=== PATIENT | female | born 1965 | race Caucasian/White ===

== ENCOUNTER 2023-09-05 09:01 | Outpatient (CLI) | payer MEDICARE, SELFPAY ==
--- NOTE | ~2023-09-05 | CT_ITS ---
Clinical Indication: Chest pain CT Scan of the Chest and Abdomen with Contrast: Technique: Contiguous sections were acquired throughout the chest and abdomen after intravenous admin istration of 100 cc of Omnipaque 350. Dose reduction technique was used on this scan by utilizing au tomated exposure control and iterative reconstruction technique. The dose-length product (DLP) was 50 6.68 mGy-cm. Findings: There is no evidence of any significant mediastinal, hilar or axillary lymphadenopathy. The mediastin al vascular structures appear normal. Large hiatal hernia present, containing essentially entire stom ach, with organoaxial volvulus There is no evidence of pleural or pericardial effusion. The lungs are clear. No pulmonary nodules or infiltrates are noted. There is intrahepatic and extrahepatic biliary dilatation, which may be related to prior cholecystect keanu. No obstructing mass evident. No pancreatic ductal dilatation. The spleen, pancreas, adrenals and kidneys are within normal limits. No evidence of aortic aneurysm. No lymphadenopathy. Visualized bowel loops otherwise are unremarkable. No ascites. Impression: Large hiatal hernia containing essentially the entire stomach, with organoaxial volvulus. Intrahepatic and extrahepatic biliary dilatation is presumably related to prior cholecystectomy. Michelle berg clinically. Reviewed, dictated and finalized at [facility]. Impression: Large hiatal hernia containing essentially the entire stomach, with organoaxial volvulus. Intrahepatic and extrahepatic biliary dilatation is presumably related to prior cholecystectomy. Correlate clinically.
[2023-09-05 09:37] LABS: Estimated Glomerular Filt Rate > 60
== END 2023-09-05 09:02 | disposition home or self-care (01) ==
PROVIDERS: Visit Provider Surgery
DX: R07.9 Chest pain, unspecified (principal); K44.9 Diaphragmatic hernia without obstruction or gangrene; Z90.49 Acquired absence of other specified parts of digestive tract
CPT/HCPCS: 71260; 74160; Q9967

== ENCOUNTER 2023-09-11 08:57 | Day surgery (SDC) | payer MEDICARE, SELFPAY ==
[2023-09-03 10:03] VITALS: BMI 30.4
[2023-09-03 11:31] VITALS: BMI 30.2
[2023-09-11 10:43] VITALS: BP 112/78; PULSE 94; RESP 18; TEMP 37; O2SAT 98; BMI 30.1
--- NOTE | 2023-09-11 10:53 | WPDANESEPPF ---
Anes - Initial Pre Proc Eval Procedure: Operation Date: 09/11/23 11:30 Proposed Procedures p Esophagogastroduodenoscopy - Jono Cuevas MD Date/Time: 09/11/23 10:53 Surgeon: Jono Cuevas MD Pre Op Diagnosis: Personal HX of other disease of the digestive Patient Data Age: 57 Gender: F Height: 1.57 m Weight: 74.7 kg Last Vital Signs Temp 37.0 C 09/11/23 10:43 Pulse 94 09/11/23 10:43 Resp 18 09/11/23 10:43 BP 112/78 09/11/23 10:43 Pulse Ox 98 09/11/23 10:43 O2 Del Method Room Air 09/11/23 10:43 Allergies Allergy/AdvReac Type Severity Reaction Status Date / Time azithromycin AdvReac Intermediate DIARRHEA/CR Verified 09/11/23 10:27 AMPING Home Medications Medication Instructions Recorded Confirmed Type amitriptyline 10 mg tablet 10 mg PO QHS 09/01/23 09/11/23 History montelukast 10 mg tablet 10 mg PO DAILY 09/01/23 09/11/23 History (Singulair) pantoprazole 40 mg tablet,delayed 40 mg PO QAM 09/01/23 09/11/23 History release tramadol 25 mg tablet 50 mg PO Q6H PRN Pain (Scale Score 09/01/23 09/11/23 History 4-6) albuterol sulfate 90 mcg/actuation 90 mcg inhalation DIRECTED PRN 09/03/23 09/11/23 History aerosol inhaler Shortness Of Breath Or Wheezing allopurinol 100 mg tablet 200 mg PO BID 09/03/23 09/11/23 History amlodipine 5 mg tablet 5 mg PO DAILY 09/03/23 09/11/23 History dicyclomine 10 mg capsule 10 mg PO BID 09/03/23 09/11/23 History meloxicam 15 mg tablet 15 mg PO DAILY 09/03/23 09/11/23 History zolpidem 10 mg tablet 10 mg PO HS 09/03/23 09/11/23 History Patient hx anesthesia problems: none Family hx anesthesia problems: none Results Review: All pre-operative results and documents have been reviewed as part of the pre-operative evaluation. [facility] Past Medical History Medical History Asthma History of hiatal hernia History of kidney stones History of peptic ulcer IBS (irritable bowel syndrome) Migraine Ulcer Surgical History Surgical History Biceps tendon rupture repair in 2009 H/O: hysterectomy 2010 History of ankle surgery 2011 & 2013 Hx laparoscopic cholecystectomy 2009 Hx of appendectomy 2009 Hx of breast augmentation 1987 Social History Social History Smoking status: Never smoker Alcohol intake: never Substance use: never Substance use type: marijuana Do You Feel Safe in your Home?: Yes Lack of Transportation: No Lack of Food: Sometimes True Current Housing: I Have Housing Concerned About Future Housing: Decline to Answer Difficulty Paying Gas/Electric Bills: Decline to Answer Difficulty Paying for Meds: No Currently Unemployed: No Education: High School Diploma/GED Living arrangements: alone Spiritual care concerns: No Anes - Eval Final PreProcedure Day of Procedure 09/11/23 10:53 Patient weight: obese Heart: regular rate and rhythm Lungs: clear to auscultation Airway: Mallampati scale class II Neurological: alert and oriented Last oral intake: >/= 8 hours ASA classification: III Emergent: no Anesthetic plan: proceed Anesthesia type and monitoring: general GIVS and standard monitoring Results Review: All pre-operative results and documents have been reviewed as part of the pre-operative evaluation. Informed Consent: The patient's anesthetic plan and its attendant risks and benefits were discussed with the patient/family/POA. Questions were solicited and answers provided to the satisfaction of the patient/family/POA.
[2023-09-11] MEDS: LACTATED RINGERS 1,000 ML 150 ML IV CONT (11:05)
--- NOTE | 2023-09-11 11:18 | PM.HPGS ---
History of Present Illness History of Present Illness Consent: Risks, benefits, and alternatives have been discussed and questions answered. Patient agrees to proceed with procedure. Chief complaint: Epigastric pain Narrative: Elizabet Curry is a 57 year old female referred for EGD because of epigastric pain. Patient has a his distant history of peptic ulcer disease had a bleeding ulcer in 2009. Apparently at found to have a hiatal hernia at that time. She has been was all since that time. More recently has had epigastric pain over the last 1 month. Some discomfort right upper quadrant. She continues take pantoprazole but notices this discomfort often after eating. States supplemental antacids have made no impact on this pain. She presents today for EGD to evaluate ongoing discomfort. Patient denies any weight loss or bleeding at this time. Review of Systems Review of Systems: All systems reviewed & are unremarkable except as noted in HPI and below PMFSH Past Medical History Medical History Asthma History of hiatal hernia History of kidney stones History of peptic ulcer IBS (irritable bowel syndrome) Migraine Ulcer Surgical History Surgical History Biceps tendon rupture repair in 2009 H/O: hysterectomy 2010 History of ankle surgery 2011 & 2013 Hx laparoscopic cholecystectomy 2009 Hx of appendectomy 2009 Hx of breast augmentation 1988 Social History Social History Smoking status: Never smoker Alcohol intake: never Substance use: never Substance use type: marijuana Do You Feel Safe in your Home?: Yes Lack of Transportation: No Lack of Food: Sometimes True Current Housing: I Have Housing Concerned About Future Housing: Decline to Answer Difficulty Paying Gas/Electric Bills: Decline to Answer Difficulty Paying for Meds: No Currently Unemployed: No Education: High School Diploma/GED Living arrangements: alone Spiritual care concerns: No Meds Home Medications and Allergies Home Medications Medication Instructions Recorded Confirmed Type amitriptyline 10 mg tablet 10 mg PO QHS 09/01/23 09/11/23 History montelukast 10 mg tablet 10 mg PO DAILY 09/01/23 09/11/23 History (Singulair) pantoprazole 40 mg tablet,delayed 40 mg PO QAM 09/01/23 09/11/23 History release tramadol 25 mg tablet 50 mg PO Q6H PRN Pain (Scale Score 09/01/23 09/11/23 History 4-6) albuterol sulfate 90 mcg/actuation 90 mcg inhalation DIRECTED PRN 09/03/23 09/11/23 History aerosol inhaler Shortness Of Breath Or Wheezing allopurinol 100 mg tablet 200 mg PO BID 09/03/23 09/11/23 History amlodipine 5 mg tablet 5 mg PO DAILY 09/03/23 09/11/23 History dicyclomine 10 mg capsule 10 mg PO BID 09/03/23 09/11/23 History meloxicam 15 mg tablet 15 mg PO DAILY 09/03/23 09/11/23 History zolpidem 10 mg tablet 10 mg PO HS 09/03/23 09/11/23 History Allergies Allergy/AdvReac Type Severity Reaction Status Date / Time azithromycin AdvReac Intermediate DIARRHEA/CR Verified 09/11/23 10:27 AMPING Vital Signs Vital Signs - 24 hr 09/11/23 10:43 Temperature 98.6 F Pulse Rate 94 Respiratory Rate 18 Blood Pressure 112/78 Pulse Oximetry 98 Oxygen Delivery Room Air Exam Narrative: Physical exam reveals patient to be alert. Vital signs stable. HEENT exam is unremarkable. Patient is anicteric. Lungs are clear to auscultation and percussion. Heart is without murmur or extra sounds. Abdomen bowel sounds are present soft nontender with no organomegaly. Digital external rectal exam normal. Assessment and Plan Assessment and plan (1) Epigastric abdominal pain: Code(s): R10.13 - Epigastric pain Status: Acute Assessment and Plan: Patient with epigastric pain over the last 1 month. Occurs after
--- NOTE | 2023-09-11 11:34 | WPDANESPN ---
Anes - Prog Note Post-Op Date/Time: 09/11/23 11:34 Cardiovascular status: normal Respiratory status: normal Airway patency: baseline Mental status: baseline Post-Op hydration status: normal Vital Signs: Last Vital Signs Temp 37.0 C 09/11/23 10:43 Pulse 94 09/11/23 10:43 Resp 18 09/11/23 10:43 BP 112/78 09/11/23 10:43 Pulse Ox 98 09/11/23 10:43 O2 Del Method Room Air 09/11/23 10:43 Pain Score (VAS): 0 Patient Feedback: Patient satisfied with anesthetic care.
[2023-09-11 11:36] VITALS: BP 103/63; PULSE 86; RESP 15; O2SAT 98
[2023-09-11 11:46] VITALS: BP 98/68; PULSE 87; RESP 16; O2SAT 99
[2023-09-11 11:56] VITALS: BP 102/72; PULSE 84; RESP 18; O2SAT 98
== END 2023-09-11 12:13 | disposition home or self-care (01) ==
PROVIDERS: Visit Provider Internal Medicine Gastroenterology
PROC: 0DJ08ZZ Inspection of Upper Intestinal Tract, Via Natural or Artificial Opening Endoscopic (ICD-10-PCS; CPT 43235; principal; 2023-09-11 11:30)
DX: R10.13 Epigastric pain (principal); K44.9 Diaphragmatic hernia without obstruction or gangrene
CPT/HCPCS: 43239

== ENCOUNTER 2023-11-11 09:54 | Outpatient (CLI) | payer MEDICARE, SELFPAY ==
--- NOTE | ~2023-11-11 | XR_ITS ---
Clinical Indication: Diaphragmatic hernia PA and lateral views of the chest: Comparison: None Findings: The lungs are clear, without evidence of focal consolidation or pleural effusion. Cardiome diastinal silhouette is within normal limits. Large hiatal hernia present. Osseous structures intact. Impression: Large hiatal hernia. Clear lungs. Reviewed, dictated and finalized at [facility]. Impression: Large hiatal hernia. Clear lungs.
--- NOTE | 2023-11-11 10:59 | ECG_ITS ---
Test Date: 2023-11-11 11:10:53 Measurements Intervals [place] Rate: 94 P: 24 CO: 182 QRS: 94 QRSD: 100 T: 40 QT: 361 QTc: 452 Interpretive Statements SINUS RHYTHM RIGHT AXIS DEVIATION EARLY PRECORDIAL R/S TRANSITION BASELINE ARTIFACT- III, AVF BORDERLINE ECG No previous ECG available for comparison Electronically Signed On 11-11-2023 11:51:45 CDT by Rico Lockwood D.O.
[2023-11-11 11:15] LABS: Basophils Absolute Auto 0.2 K/mm3 (0.0-0.1); Eosinophils Absolute Auto 0.7 K/mm3 (0-0.3); Eosinophils Percent Auto 8.2 % (0-4.4); Hematocrit 41.4 % (37.0-47.0); Hemoglobin 13.4 g/dL (12.0-15.0); Immature Granulocyte Absolute 0.03 K/mm3 (0.00-0.031); Immature Granulocyte Percent A 0.3 % (0-0.5); Lymphocytes Absolute Auto 3.14 K/mm3 (0.9-3.2); Lymphocytes Percent Auto 34.9 % (18.3-44.2); Mean Corpuscular HGB Conc 32.4 g/dl (32-36); Mean Corpuscular Hemoglobin 30.4 pg (26-34); Mean Corpuscular Volume 93.9 fl (80-100); Mean Platelet Volume 11.1 fl (7.4-10.4); Monocytes Percent Auto 11.1 % (2.6-8.5); Neutrophils Absolute Auto 3.9 K/mm3 (1.3-6.7); Neutrophils Percent Auto 43.5 % (45.5-73.1); Platelet Count Result 332 k/mm3 (150-375); Red Blood Count 4.41 M/mm3 (4.2-5.4); Red Cell Distribution Width 16.5 % (11.5-14.5)
[2023-11-11 11:25] LABS: Anion Gap 7 mmol/L (4-12); Blood Urea Nitrogen 14 mg/dL (7-17); Calcium 9.1 mg/dL (8.4-10.2); Carbon Dioxide 31 mmol/L (22-30); Chloride 100 mmol/L (98-107); Estimated Glomerular Filt Rate > 60; Glucose 93 mg/dL (65-110); Potassium 3.6 mmol/L (3.4-5.0); Sodium 138 mmol/L (137-145)
== END 2023-11-11 09:55 | disposition home or self-care (01) ==
PROVIDERS: Visit Provider Surgery
DX: K44.9 Diaphragmatic hernia without obstruction or gangrene (principal); Z01.818 Encounter for other preprocedural examination
CPT/HCPCS: 36415; 71046; 80048; 85025; 86850; 86900; 86901; 93005

== ENCOUNTER 2023-11-20 14:00 | Inpatient (IN) | payer MEDICARE, SELFPAY ==
--- NOTE | 2023-11-11 09:58 | PC.NURSE ---
Report to the Outpatient Waiting Room, entrance under the green pavilion located off [facility], at time ___6:30AM____ on date ___11/19/23____. Planned Procedure Time: __8:30AM . Time changes happen often and if your time is changed the preop area will call you the afternoon before. - You and your visitor will be asked to self-screen and do not enter if you have any COVID symptoms. - A mask is optional within the hospital at this time. Patients may have clear liquids (water, carbonated beverages, clear teas, apple juice) until 3 hours prior to surgery with a maximum of 20 ounces. - No food from midnight until time of surgery. Take the following medications with a SIP of water the morning of surgery: __ MAY USE ALBUTEROL INHALER NEEDED. MAY TAKE TRAMADOL NEEDED FOR PAIN, AND BLINK DROPS NEEDED. DO NOT STOP ANY OF YOUR OTHER PRESCRIPTION MEDICATIONS PRIOR TO SURGERY ?EXCEPT THE FOLLOWING Medications to discontinue per physician NONE Date to take last dose Please no make-up, nail korean, hairspray, perfume, deodorant, or body powder the day of surgery. No jewelry (including any body piercings) or valuables the day of surgery, leave them at home. Please take a shower or bath the night before, or the morning of, surgery with an antibacterial soap. Wear comfortable, loose fitting clothing. - Jewelry must be removed prior to entering the operating room. Rings and piercings that are not removed may be cut off. - The hospital will not accept responsibility for valuables. - Please leave all valuables, including medications, at home the day of surgery. If you are going home after surgery, a licensed taxi cab driver must drive you home. - NO public transportation without another adult if you receive anesthesia. - We recommend that an adult stay with you for 24 hours following discharge. - We also recommend that you do not drive, make important decision, drink alcoholic beverages, or take any drugs that were not prescribed by your health care provider for at least 24 hours after your discharge time. Follow any additional instructions given to you from your surgeon. If you or anyone in your household have experienced Covid symptoms in the past week, please notify your surgeon or the nurse liaison at the phone number below for possible testing. Telephone instructions given to ___PATIENT and asked if any additional questions and then verbalized understanding. Patient advised to call surgeon office or pre surgery nurse liaison [phone] if any additional questions.
[2023-11-11 10:21] VITALS: BP 126/77; PULSE 96; RESP 16; TEMP 37.2; O2SAT 95; BMI 31.8
--- NOTE | 2023-11-18 16:54 | PM.IMHP ---
H&P: HPI History of Present Illness Date/Time: 11/18/23 16:54 Chief Complaint: Upper abdominal pain and vomiting Narrative: Patient is a 58-year-old woman who has had multiple episodes of regurgitation of food as well as vomiting and left upper quadrant abdominal pain. She has been eating only very small amounts of liquid and very soft foods. She had an EGD which showed a large hiatal hernia but no signs of esophagitis or Obrien's esophagus. She had a CT scan as well as an upper GI which both showed a large paraesophageal hiatal hernia with the entire stomach in the chest. After thorough discussion, the patient is taken to surgery now for laparoscopic repair of paraesophageal hiatal hernia with intrathoracic stomach. Review of Systems Review of Systems: All systems reviewed & are unremarkable except as noted in HPI and below (HPI) [facility] Past Medical History Medical History Asthma History of hiatal hernia History of kidney stones History of peptic ulcer IBS (irritable bowel syndrome) Migraine Ulcer Surgical History Surgical History Biceps tendon rupture repair in 2009 H/O: hysterectomy 2010 History of ankle surgery 2011 & 2013 Hx laparoscopic cholecystectomy 2009 Hx of appendectomy 2009 Hx of breast augmentation 1987 Social History Social History Smoking status: Never smoker Alcohol intake: never Substance use: never Substance use type: marijuana Do You Feel Safe in your Home?: Yes Lack of Transportation: No Lack of Food: Sometimes True Current Housing: I Have Housing Concerned About Future Housing: Decline to Answer Difficulty Paying Gas/Electric Bills: Decline to Answer Difficulty Paying for Meds: No Currently Unemployed: No Education: High School Diploma/GED Living arrangements: alone Spiritual care concerns: No Meds Home Medications and Allergies Home Medications Medication Instructions Recorded Confirmed Type montelukast 10 mg tablet 10 mg PO DAILY 09/01/23 11/11/23 History (Catalina) pantoprazole 40 mg tablet,delayed 40 mg PO QAM 09/01/23 11/11/23 History release albuterol sulfate 90 mcg/actuation 90 mcg inhalation DIRECTED PRN 09/03/23 11/11/23 History aerosol inhaler Shortness Of Breath Or Wheezing allopurinol 100 mg tablet 200 mg PO BID 09/03/23 11/11/23 History amlodipine 5 mg tablet 5 mg PO DAILY 09/03/23 11/11/23 History dicyclomine 10 mg capsule 10 mg PO BID 09/03/23 11/11/23 History meloxicam 15 mg tablet 15 mg PO DAILY 09/03/23 11/11/23 History zolpidem 10 mg tablet 10 mg PO HS 09/03/23 11/11/23 History amitriptyline 50 mg tablet 50 mg PO HS 11/11/23 11/11/23 History benzonatate 200 mg PO TID PRN Cough 11/11/23 11/11/23 History brimonidine 0.2 % eye drops 1 drp EACH EYE HS 11/11/23 11/11/23 History polyethylene glycol 400 0.25 % eye 1 drp ophthalmic (eye) TID 11/11/23 11/11/23 History drops (Blink Tears) sucralfate 1 gram tablet 1 g PO DAILY 11/11/23 11/11/23 History tramadol 50 mg tablet 50 mg PO Q6-8H PRN Pain 11/11/23 11/11/23 History Allergies Allergy/AdvReac Type Severity Reaction Status Date / Time azithromycin AdvReac Intermediate DIARRHEA/CR Verified 11/11/23 10:07 AMPING Exam Const: General: comfortable, no acute distress, alert and awake HENMT: Head: normocephalic and atraumatic Mouth: Yes Normal oral and palatal mucosa present Eyes: Conjunctivae: conjunctivae normal Pupils: Equal, round and reactive pupils present EOM: EOMs intact bilaterally Neck: Neck: normal visual inspection, no lymphadenopathy and nontender Resp: Effort & Inspection: normal respiratory effort Auscultation: clear to auscultation bilaterally Cardio: Rate: regular rate Rhythm: regular rhythm Heart sounds: no gallops, no murmurs and no rubs GI: Inspection: non-diste
[2023-11-19] VITALS (12 sets, daily range): BP systolic 98–146; BP diastolic 56–80; PULSE 97–110; RESP 13–18; TEMP 36.2–37.3; O2SAT 90–99
[2023-11-19] MEDS: LACTATED RINGERS 1,000 ML 30 ML IV CONT ×2 (07:15→12:05)
--- NOTE | 2023-11-19 07:27 | WPDHPUPDATE1 ---
History and Physical Update Update Date/Time: 11/19/23 07:27 History and Physical has been reviewed, including an updated exam of the patient. There are NO changes in the patient's condition. Risks, benefits, and alternatives have been discussed and questions answered. Patient agrees to proceed with procedure.
--- NOTE | 2023-11-19 08:01 | WPDANESEPPF ---
Anes - Initial Pre Proc Eval Procedure: Operation Date: 11/19/23 08:30 Proposed Procedures p Laparoscopic Repair Paraesophageal Hiatal Hernia with Fundoplication - Sal Gutierrez MD Date/Time: 11/19/23 08:01 Surgeon: Sal Gutierrez MD Pre Op Diagnosis: paraesophageal hiatal hernia Patient Data Age: 58 Gender: F Height: 1.57 m Weight: 76.7 kg Last Vital Signs Temp 98.1 F 11/19/23 06:59 Pulse 100 11/19/23 06:59 Resp 18 11/19/23 06:59 BP 98/56 L 11/19/23 06:59 Pulse Ox 98 11/19/23 06:59 O2 Del Method Room Air 11/19/23 06:59 Allergies Allergy/AdvReac Type Severity Reaction Status Date / Time azithromycin AdvReac Intermediate DIARRHEA/CR Verified 11/19/23 07:47 AMPING Home Medications Medication Instructions Recorded Confirmed Type montelukast 10 mg tablet 10 mg PO DAILY 09/01/23 11/19/23 History (Singulair) pantoprazole 40 mg tablet,delayed 40 mg PO QAM 09/01/23 11/19/23 History release albuterol sulfate 90 mcg/actuation 90 mcg inhalation DIRECTED PRN 09/03/23 11/19/23 History aerosol inhaler Shortness Of Breath Or Wheezing allopurinol 100 mg tablet 200 mg PO BID 09/03/23 11/19/23 History amlodipine 5 mg tablet 5 mg PO HS 09/03/23 11/19/23 History dicyclomine 10 mg capsule 10 mg PO BID 09/03/23 11/19/23 History meloxicam 15 mg tablet 15 mg PO DAILY 09/03/23 11/19/23 History zolpidem 10 mg tablet 10 mg PO HS 09/03/23 11/19/23 History amitriptyline 50 mg tablet 50 mg PO HS 11/11/23 11/19/23 History benzonatate 200 mg PO TID PRN Cough 11/11/23 11/11/23 History brimonidine 0.2 % eye drops 1 drp EACH EYE HS 11/11/23 11/19/23 History polyethylene glycol 400 0.25 % eye 1 drp ophthalmic (eye) TID 11/11/23 11/19/23 History drops (Blink Tears) sucralfate 1 gram tablet 1 g PO DAILY 11/11/23 11/19/23 History tramadol 50 mg tablet 50 mg PO Q6-8H PRN Pain 11/11/23 11/19/23 History Patient hx anesthesia problems: none Family hx anesthesia problems: none Results Review: All pre-operative results and documents have been reviewed as part of the pre-operative evaluation. PMFSH Past Medical History Medical History Asthma History of hiatal hernia History of kidney stones History of peptic ulcer IBS (irritable bowel syndrome) Migraine Ulcer Surgical History Surgical History Biceps tendon rupture repair in 2009 H/O: hysterectomy 2009 History of ankle surgery 2011 & 2013 Hx laparoscopic cholecystectomy 2009 Hx of appendectomy 2009 Hx of breast augmentation 1987 Social History Social History Smoking status: Never smoker Alcohol intake: never Substance use: never Substance use type: marijuana Do You Feel Safe in your Home?: Yes Lack of Transportation: No Lack of Food: Sometimes True Current Housing: I Have Housing Concerned About Future Housing: Decline to Answer Difficulty Paying Gas/Electric Bills: Decline to Answer Difficulty Paying for Meds: No Currently Unemployed: No Education: High School Diploma/GED Living arrangements: alone Spiritual care concerns: No Anes - Eval Final PreProcedure Day of Procedure 11/19/23 08:01 Patient weight: normal Heart: regular rate and rhythm Lungs: clear to auscultation Airway: Mallampati scale class III Neurological: alert and oriented Last oral intake: >/= 8 hours ASA classification: III Emergent: no Anesthetic plan: proceed Anesthesia type and monitoring: general ETT and standard monitoring Results Review: All pre-operative results and documents have been reviewed as part of the pre-operative evaluation. Informed Consent: The patient's anesthetic plan and its attendant risks and benefits were discussed with the patient/family/POA. Questions were solicited and answers provided to the satisfaction of the patient/fami
[2023-11-19] MEDS: ceFAZolin 2 GM/D5W 50 ML 2 GM/50 ML BAG IVPB (08:29)
[2023-11-19] MEDS: BUPIVACAINE/EPINEPHRINE 0.5% 50 ML VIAL 30 ML INFILTRATE (09:01)
--- NOTE | 2023-11-19 12:23 | W.PM.PROC2 ---
Procedure Note - Detailed Date of Procedure 11/19/23 Pre-op Diagnosis paraesophageal hiatal hernia Post-op Diagnosis Same Procedure Performed Repair paraesophageal hiatal hernia with intrathoracic stomach, Magaly fundoplication Surgeon Sal Gutierrez MD Hand Cultivator Shannan Gallagher RN Anesthesia General and Local Indications patient is known to have a very large hiatal hernia with intrathoracic stomach. She has had obstructive symptoms as well as reflux problems. She is taken to surgery now for repair Findings large hiatal hernia, intrathoracic stomach Description of Procedure the patient was taken to the operating room and induced into general anesthesia. The abdomen was prepped and draped. Initial trocar was placed in the midline above the umbilicus. Varies needle was introduced before the trocar. Local was infiltrated before all of the trocars were placed. After we insufflated through the varies needle, a 5 mm applied Medical optical trocar was then placed into the abdominal cavity. There was no sign of injury or bleeding. We then placed a left midclavicular and subcostal 10 11 mm trocar. The camera was moved here. Local was infiltrated and an incision was made just to the right of the midline under the right costal margin. The Vince retractor was placed here. It was positioned such that the lateral segment of the left lobe of the liver was elevated and the diaphragmatic hernia was exposed. A Vince was then locked in place. To upper abdominal 10 11 trocars were then placed 1 on the right and 1 on the left. Patient was placed in reverse Trendelenburg. The laparoscopic LigaSure was used for essentially all the dissection. Dissection began by dividing the hepatogastric ligament and exposing the right violetta. We divided the hernia sac at the right violetta and then dissected under the hernia sac in the apex of the hiatus and dissected broadly the hernia sac from the mediastinum. This dissection was continued to the patient's right and hernia sac was divided laterally and then divided near the left violetta. From there we carefully divided and mobilized the hernia sac down towards the hiatus. The hernia sac was quite large in this required dissection high into the mediastinum. This dissection encountered no bleeding. I then went to the apex of the hiatus and continued the dissection of the hernia sac from the mediastinum along the upper portion of the left violetta. I also divided the hernia sac from the upper portion of the left violetta. This process was continued as far as possible. At this point it was then necessary to flip the stomach anteriorly and divide the short gastrics. Stomach was held by the greater curvature and some traction was placed on the omentum as it was attached to the stomach. I then used LigaSure to divide the greater omentum from the greater curvature and gained access to the lesser sac. Continued this process up to the fundus of the stomach and then exposed short gastrics which we also divided with the LigaSure. The final attachments of the upper stomach to the left violetta were then taken down as well with the LigaSure. We mobilized the hernia sac from the posterior aspect of the left violetta. We could not divide all of it from this angle. The lower edges of the hernia sac were placed under traction and we then worked on the left side of the esophagus in the mediastinum. Hernia sac was continuously reduced. Care was taken to avoid the left pleura. We intentionally kept distance from the esophagus to avoid any nerve injury. Eventually the hernia sac was dissected down to and through the hiatus. We then went back to the right side of the esophagus. The stomach was elevated and we continued to divide hernia sac from the remainder of the left violetta. At this point, the hernia sac was further reduced and brought entirely into the abdominal cavity. Most of the hernia sac was then divided from the stomach and esophagus using the LigaSu
--- NOTE | 2023-11-19 13:44 | ADMGEN ---
This patient, Elizabet Curry, was admitted to Medical Room 247-. Patient/family oriented to hospital policies and general routines including ID bracelet, bed and alarms, visiting hours, pain management, procedures, bathroom and other care routines, personal items, smoking policy, room service/diet, and visiting hours. Information on how to activate the Rapid Response Team has been discussed. Patient/Family are encouraged to report perceived risks to care and to ask questions if they do not understand what they are told or what they should do.
[2023-11-19] MEDS: MORPHINE SULFATE (*CRX) 4 MG/ML INJ IV PUSH (14:07)
[2023-11-19] MEDS: LACTATED RINGERS 1,000 ML 100 ML IV CONT (14:08)
[2023-11-19] MEDS: oxyCODONE/ACETAMINOPHEN (*CRX) 10-325 MG TABLET 1 TAB PO (18:16)
[2023-11-19] MEDS: ARTIFICIAL TEARS OPHTH SOLN 15 ML BOTTLE 1 DROP EACH EYE (18:17)
[2023-11-19] MEDS: ZOLPIDEM TARTRATE (*CRX) 5 MG TABLET 10 MG PO (21:21)
[2023-11-19] MEDS: BRIMONIDINE TARTRATE 0.2% OP SOLN 5 ML BTL 1 DROP EACH EYE (21:22)
[2023-11-19] MEDS: MONTELUKAST SODIUM 10 MG TABLET PO (21:22)
[2023-11-19] MEDS: allopurinoL 100 MG TABLET 200 MG PO (21:22)
[2023-11-19] MEDS: ENOXAPARIN 30 MG/0.3 ML SYRINGE SUB-Q (21:22)
[2023-11-19] MEDS: AMITRIPTYLINE HCL 25 MG TABLET 50 MG PO (21:22)
[2023-11-19] MEDS: amLODIPine BESYLATE 5 MG TABLET PO (21:22)
[2023-11-19] MEDS: DICYCLOMINE HCL 10 MG CAPSULE PO (21:22)
[2023-11-20 02:28] VITALS: BP 128/78; PULSE 101; RESP 13; TEMP 36.6; O2SAT 91
[2023-11-20 05:52] LABS: Hematocrit 38.3 % (37.0-47.0); Hemoglobin 12.2 g/dL (12.0-15.0); Mean Corpuscular HGB Conc 31.9 g/dl (32-36); Mean Corpuscular Hemoglobin 29.5 pg (26-34); Mean Corpuscular Volume 92.5 fl (80-100); Mean Platelet Volume 11.3 fl (7.4-10.4); Platelet Count Result 327 k/mm3 (150-375); Red Blood Count 4.14 M/mm3 (4.2-5.4); Red Cell Distribution Width 16.8 % (11.5-14.5); White Blood Count 9.9 K/mm3 (4.5-10.0)
[2023-11-20 06:05] LABS: Anion Gap 8 mmol/L (4-12); Blood Urea Nitrogen 9 mg/dL (7-17); Calcium 8.7 mg/dL (8.4-10.2); Carbon Dioxide 30 mmol/L (22-30); Chloride 100 mmol/L (98-107); Estimated CRCL calculation 81 ml/min; Estimated Glomerular Filt Rate > 60; Glucose 116 mg/dL (65-110); Potassium 3.9 mmol/L (3.4-5.0); Sodium 138 mmol/L (137-145)
--- NOTE | 2023-11-20 07:47 | WPDANESPN ---
Anes - Prog Note Post-Op Date/Time: 11/20/23 07:47 Cardiovascular status: normal Respiratory status: normal Airway patency: baseline Mental status: baseline Post-Op hydration status: normal Vital Signs: Last Vital Signs Temp 36.6 C 11/20/23 02:28 Pulse 101 H 11/20/23 02:28 Resp 13 11/20/23 02:28 BP 128/78 11/20/23 02:28 Pulse Ox 91 11/20/23 02:28 O2 Del Method Room Air 11/19/23 21:10 O2 Flow Rate 8 11/19/23 12:20 Pain Score (VAS): 10 I/O: Intake & Output 11/19/23 11/19/23 11/20/23 15:59 23:59 07:59 Intake Total 150 80 Balance 150 80 Laboratory Tests 11/20/23 05:41 11/20/23 05:41 11/20/23 05:41 WBC 9.9 RBC 4.14 L Hgb 12.2 Hct 38.3 MCV 92.5 MCH 29.5 MCHC 31.9 L RDW 16.8 H Plt Count 327 MPV 11.3 H Sodium 138 Potassium 3.9 Chloride 100 Carbon Dioxide 30 Anion Gap 8 BUN 9 D Creatinine 0.60 L Estim Creat Clear Calc 81 Estimated GFR > 60 Glucose 116 H Calcium 8.7 Post-procedural complaints: none Patient Feedback: Patient satisfied with anesthetic care.
[2023-11-20] MEDS: allopurinoL 100 MG TABLET 200 MG PO ×2 (09:22→21:03)
[2023-11-20] MEDS: MELOXICAM 7.5 MG TABLET 15 MG PO (09:22)
[2023-11-20] MEDS: ARTIFICIAL TEARS OPHTH SOLN 15 ML BOTTLE 1 DROP EACH EYE ×3 (09:22→18:01)
[2023-11-20] MEDS: DICYCLOMINE HCL 10 MG CAPSULE PO ×2 (09:22→21:03)
[2023-11-20] MEDS: polyethylene glycoL 3350 17 GM POWD.PACK PO (09:23)
[2023-11-20] MEDS: ENOXAPARIN 30 MG/0.3 ML SYRINGE SUB-Q ×2 (09:23→21:05)
[2023-11-20] MEDS: oxyCODONE/ACETAMINOPHEN (*CRX) 5-325 MG TABLET 1 TABLET PO ×2 (09:31→14:34)
[2023-11-20 11:41] VITALS: BP 133/72; PULSE 101; RESP 12; TEMP 37.1; O2SAT 91
--- NOTE | 2023-11-20 12:23 | PM.PNGS ---
Progress Note: A&P Assessment and Plan (1) Paraesophageal hiatal hernia: Code(s): K44.9 - Diaphragmatic hernia without obstruction or gangrene Status: Chronic Assessment and Plan: Doing well postop day 1. Will advance to full liquid diet. Start increasing activity as tolerated and ambulate in the halls today. Possibly discharge home tomorrow if she continues to improve. (2) GERD without esophagitis: Code(s): K21.9 - Gastro-esophageal reflux disease without esophagitis Status: Acute (3) Asthma: Qualifiers: Asthma severity: mild Asthma persistence: intermittent Asthma complication type: uncomplicated Qualified Code(s): J45.20 - Mild intermittent asthma, uncomplicated Code(s): J45.909 - Unspecified asthma, uncomplicated Status: Acute (4) Hypertension: Qualifiers: Hypertension type: primary hypertension Qualified Code(s): I10 - Essential (primary) hypertension Code(s): I10 - Essential (primary) hypertension Status: Acute (5) Glaucoma: Qualifiers: Glaucoma type: with increased episcleral venous pressure Laterality: bilateral Qualified Code(s): H40.813 - Glaucoma with increased episcleral venous pressure, bilateral Code(s): H40.9 - Unspecified glaucoma Status: Acute Plan I have discussed the patient's case and plan of care with Dr. Gutierrez. Subjective Subjective Date/Time Seen: 11/20/23 12:23 Patient reports: tolerating liquids well, flatus and no bowel movement Interval history: Pain well-controlled. She is requesting to try taking her tramadol, which she typically takes for her ankle pain after having a fall and two surgeries. She typically takes tramadol twice daily. She did take percocet today, which is more for left shoulder pain rather than incisional pain. She reports only mild soreness at her incisions. No nausea, vomiting, regurgitation, or dysphagia. She is doing well with the clear liquids. She is ambulating in the room well to go to the bathroom. No other complaints at this time. Exam Const: General: comfortable and no acute distress Resp: Effort & Inspection: normal respiratory effort Auscultation: clear to auscultation bilaterally Cardio: Rate: regular rate Rhythm: regular rhythm GI: Inspection: non-distended and incision (incisions dry and intact) GI Palp: Yes Soft to palpation, Yes Tenderness to palpation present (GI) (incisional) and No Guarding due to palpation present (GI) Auscultation: normal bowel sounds Neuro: General: moves all extremities and no focal motor deficits Extrem: General: no calf tenderness and no edema Psych: Mental Status: mental status grossly normal Insight: Good insight present (Psych) Objective Data Vital Signs Vital Signs: Vital Signs - 24 hr 11/19/23 12:35 11/19/23 12:50 11/19/23 13:10 Temperature Pulse Rate 100 102 H 98 Respiratory Rate 18 18 18 Blood Pressure 138/78 138/80 137/78 Pulse Oximetry 93 92 94 Oxygen Delivery Room Air Room Air Room Air 11/19/23 13:40 11/19/23 13:55 11/19/23 14:25 Temperature 99.1 F 98.3 F 99.1 F Pulse Rate 102 H 101 H 103 H Respiratory Rate 16 16 16 Blood Pressure 145/73 H 141/76 H 139/71 Pulse Oximetry 92 92 94 Oxygen Delivery 11/19/23 15:25 11/19/23 13:40 11/19/23 19:05 Temperature 98.6 F 98.4 F Pulse Rate 110 H 110 H Respiratory Rate 16 13 Blood Pressure 146/77 H 121/68 Pulse Oximetry 93 90 Oxygen Delivery Room Air 11/19/23 21:10 11/19/23 22:53 11/20/23 02:28 Temperature 98.3 F 97.8 F Pulse Rate 105 H 101 H Respiratory Rate 13 13 Blood Pressure 132/70 128/78 Pulse Oximetry 92 91 Oxygen Delivery Room Air 11/20/23 11:41 11/20/23 09:30 Temperature 98.7 F Pulse Rate 101 H Respiratory Rate 12 Blood Pressure 133/72 Pulse Oximetry 91 Oxygen Delivery Room Air Intake/Output Intake/Output: Intake & Output 11/17/23 11/18/23 11/19/23 11/20/23 23:59 23:59 23:59 23:5
[2023-11-20 18:12] VITALS: BP 129/71; PULSE 100; RESP 16; TEMP 36.8; O2SAT 90
[2023-11-20 19:32] VITALS: BP 125/83; PULSE 96; RESP 18; TEMP 36.5; O2SAT 91
[2023-11-20] MEDS: traMADol HCL (*CRX) 50 MG TABLET PO (19:48)
[2023-11-20] MEDS: MONTELUKAST SODIUM 10 MG TABLET PO (21:03)
[2023-11-20] MEDS: AMITRIPTYLINE HCL 25 MG TABLET 50 MG PO (21:03)
[2023-11-20] MEDS: amLODIPine BESYLATE 5 MG TABLET PO (21:03)
[2023-11-20] MEDS: BRIMONIDINE TARTRATE 0.2% OP SOLN 5 ML BTL 1 DROP EACH EYE (21:05)
[2023-11-20] MEDS: ZOLPIDEM TARTRATE (*CRX) 5 MG TABLET 10 MG PO (22:56)
[2023-11-20] MEDS: BENZONATATE 100 MG CAPSULE 200 MG PO (22:59)
[2023-11-21 04:23] VITALS: BP 127/75; PULSE 108; RESP 20; TEMP 36.5; O2SAT 90
[2023-11-21 05:36] LABS: Hematocrit 37.9 % (37.0-47.0); Hemoglobin 12.4 g/dL (12.0-15.0); Mean Corpuscular HGB Conc 32.7 g/dl (32-36); Mean Corpuscular Hemoglobin 30.7 pg (26-34); Mean Corpuscular Volume 93.8 fl (80-100); Mean Platelet Volume 11.4 fl (7.4-10.4); Platelet Count Result 309 k/mm3 (150-375); Red Blood Count 4.04 M/mm3 (4.2-5.4); Red Cell Distribution Width 16.9 % (11.5-14.5); White Blood Count 8.3 K/mm3 (4.5-10.0)
[2023-11-21 05:54] LABS: Anion Gap 8 mmol/L (4-12); Blood Urea Nitrogen 9 mg/dL (7-17); Calcium 8.6 mg/dL (8.4-10.2); Carbon Dioxide 30 mmol/L (22-30); Chloride 99 mmol/L (98-107); Estimated CRCL calculation 81 ml/min; Estimated Glomerular Filt Rate > 60; Glucose 97 mg/dL (65-110); Potassium 3.5 mmol/L (3.4-5.0); Sodium 137 mmol/L (137-145)
--- NOTE | 2023-11-21 08:55 | PM.DS ---
DS: Admitting Diagnosis Discharge Date 11/21/2023 Admitting Diagnosis Paraesophageal hiatal hernia GERD without esophagitis Asthma Essential hypertension Glaucoma DS: Discharge Diagnosis Discharge Diagnosis (1) Paraesophageal hiatal hernia: Code(s): K44.9 - Diaphragmatic hernia without obstruction or gangrene Status: Chronic (2) GERD without esophagitis: Code(s): K21.9 - Gastro-esophageal reflux disease without esophagitis Status: Acute (3) Hypertension: Qualifiers: Hypertension type: primary hypertension Qualified Code(s): I10 - Essential (primary) hypertension Code(s): I10 - Essential (primary) hypertension Status: Acute (4) Glaucoma: Qualifiers: Glaucoma type: with increased episcleral venous pressure Laterality: bilateral Qualified Code(s): H40.813 - Glaucoma with increased episcleral venous pressure, bilateral Code(s): H40.9 - Unspecified glaucoma Status: Acute (5) Asthma: Qualifiers: Asthma severity: mild Asthma persistence: intermittent Asthma complication type: uncomplicated Qualified Code(s): J45.20 - Mild intermittent asthma, uncomplicated Code(s): J45.909 - Unspecified asthma, uncomplicated Status: Acute DS: Summary Hospital Course Hospital Course: Patient is a 58-year-old woman known to have a large paraesophageal hiatal hernia with intrathoracic stomach. She was having epigastric pain as well as obstructive symptoms. She had only been able to eat very small amounts of food at a time and only certain foods. After thorough evaluation and discussion, she was taken to the surgery on 11/19/2023 and laparoscopic repair of paraesophageal hiatal hernia with Magaly fundoplication was performed. In addition to the fundoplication, some attachment sutures of the wrap to the diaphragmatic crura were placed. Following surgery, the patient was still taking some IV analgesics on postop day 1. She did tolerate liquids well. On postop day 2., her pain was much improved, she was having no symptoms of reflux and had been eating great. She was comfortable and stable with ambulation. She is discharged in now in good condition. Status at Discharge Functional status at discharge: independent ambulation Overall status at discharge: patient is progressing back to baseline Time Spent with Patient Time attestation: Total time spent providing and/or coordinating discharge services: Time spent: Less than 30 minutes DS: Data Data Completed and Pending Labs on day of discharge: Labs from last 24 hours 11/21/23 05:28 WBC 8.3 RBC 4.04 L Hgb 12.4 Hct 37.9 MCV 93.8 MCH 30.7 MCHC 32.7 RDW 16.9 H Plt Count 309 MPV 11.4 H Sodium 137 Potassium 3.5 Chloride 99 Carbon Dioxide 30 Anion Gap 8 BUN 9 Creatinine 0.60 L Estim Creat Clear Calc 81 Estimated GFR > 60 Glucose 97 Calcium 8.6 Discharge Plan Discharge Attending physician on discharge: Sal Gutierrez Discharging Clinician: Sal Gutierrez Anticipated Discharge Date/Time: 11/21/23 08:59 Patient Disposition: Home, Self-Care Activity: may shower, no straining and as tolerated Diet: low fiber Wound Care Instructions: incision open to air Discharge Instructions: Ambulate 3-4 x per day and as tolerated. No lifting over 15-20lbs. May bathe or shower. Stairs are OK. May drive a car in 3 days. Food intake should be mostly liquids or Pureed diet. Some easy to chew soft foods are okay 2. Take small bites or drinks and chew any foods well. Take time between bites. Stop sucralfate and pantoprazole on discharge. See Dr. Gutierrez in 2 weeks. Take prescription narcotic analgesics only for severe pain. Tried to take Tylenol or your tramadol instead. Call for severe pain, temp over 100.5, vomiting, other significant change in condition. Patient Instructions: Antibiotic Form Stand Alone Forms: General Discharg
[2023-11-21] MEDS: allopurinoL 100 MG TABLET 200 MG PO (09:14)
[2023-11-21] MEDS: DICYCLOMINE HCL 10 MG CAPSULE PO (09:14)
[2023-11-21] MEDS: ENOXAPARIN 30 MG/0.3 ML SYRINGE SUB-Q (09:14)
[2023-11-21] MEDS: MELOXICAM 7.5 MG TABLET 15 MG PO (09:14)
--- NOTE | 2023-11-21 14:25 | PC.NURSE ---
urine output 475 cc,
== END 2023-11-21 16:40 | disposition home or self-care (01) | DRG 328 ==
LOC: ANHSURGERY 14:07 → ANH2MED 14:07
PROVIDERS: Nurse Practitioner Family; Admitting Provider Surgery; Visit Provider Surgery
PROC: 0DV44ZZ Restriction of Esophagogastric Junction, Percutaneous Endoscopic Approach (ICD-10-PCS; CPT 43281; principal; 2023-11-19 08:30)
DX: K44.9 Diaphragmatic hernia without obstruction or gangrene (principal); K21.9 Gastro-esophageal reflux disease without esophagitis; H40.9 Unspecified glaucoma; I10 Essential (primary) hypertension; Z90.49 Acquired absence of other specified parts of digestive tract; Z90.710 Acquired absence of both cervix and uterus
CPT/HCPCS: 36415; 80048; 85027; A9270; J0690; J1100; J1170; J1650; J2250; J2270; J2371; J2405; J2704; J3010; J7120